=== PATIENT | male | born 1985 | race African-American/Black ===

== ENCOUNTER 2017-04-27 19:31 | Emergency (ER) | payer OTHER ==
[~2017-04-27] VITALS: Ht 175.3 cm; Wt 69.7 kg
[2017-04-27 20:58] LABS: HEMATOCRIT 42.1 % (38.0-50.0); MCH 29.9 PG (29.0-34.0); MCHC 33.5 G/DL (30.0-36.0); MCV 89.2 FL (86-99); MEAN PLAT.VOLUME 9.4 uM^3 (9.0-12.4); PLATELET COUNT 294 K/uL (156-360); RBC DIS.WIDTH-CV 11.7 % (11.8-14.6); RBC DIS.WIDTH-SD 38.2 % (39-53); RED BLOOD COUNT 4.72 M/uL (4.00-5.50); WHITE BLOOD COUNT 23.7 K/uL (4.1-10.2)
[2017-04-27 21:16] LABS: CHLORIDE 100 mEq/L (99-109); POTASSIUM 3.8 mEq/L (3.7-5.4); SODIUM 139 mEq/L (136-147)
[2017-04-27 21:18] LABS: GLUCOSE 105 mg/dL (70-99)
[2017-04-27 21:19] LABS: ANION GAP 11 MEQ/L (2-14)
[2017-04-27 21:21] LABS: SERUM ETHYL ALCOHOL < 10 mg/dL
[2017-04-27 21:22] LABS: GFR ESTIMATE (CALCULATED) > 59 mL/min/
[2017-04-27 21:23] LABS: UREA NITROGEN (BUN) 8 mg/dL (9-23)
[2017-04-27 21:25] LABS: SALICYLATE < 5.0 MG/DL (15-30)
[2017-04-27] MEDS ORDERED: NARCAN4 MG NS (22:09)
[2017-04-27 22:17] LABS: AMPHETAMINE NEGATIVE (500 ng/mL); BENZODIAZEPINES NEGATIVE (150 ng/mL); COCAINE PRESUMPTIVE POSITIVE (150 ng/mL); METHAMPHETAMINE NEGATIVE (500 ng/mL); OPIATES (MORPHINE) PRESUMPTIVE POSITIVE (100 ng/mL); PHENCYCLIDINE NEGATIVE (25 ng/mL); THC CANNABINOIDS PRESUMPTIVE POSITIVE (50 ng/mL); TRICYCLIC ANTIDEPRESSANTS NEGATIVE (300 ng/mL)
[2017-04-27 22:18] LABS: ADD MEDTOX COMMENT Y; BARBITURATES NEGATIVE (200 ng/mL); INTERNAL CONTROLS VALID? YES; METHADONE NEGATIVE (200 ng/mL); OXYCODONE NEGATIVE (100 ng/mL); PROPOXYPHENE NEGATIVE (300 ng/mL)
[2017-04-27 22:50] VITALS: BP 134/95
== END 2017-04-27 22:51 | disposition left against medical advice (07) ==
LOC: EME → EDBD 19:31 → EME 19:31
PROVIDERS: Emergency Medicine
DX: T40.1X1A Poisoning by heroin, accidental (unintentional), initial encounter (principal); Z53.20 Procedure and treatment not carried out because of patient's decision for unspecified reasons
CPT/HCPCS: 80048; 81003; 84999; 85027; 99281; 99284; G0480; J2310

== ENCOUNTER 2017-05-01 22:43 | Emergency (ER) | payer OTHER ==
[~2017-05-01] VITALS: Ht 175.3 cm; Wt 64.5 kg
[~2017-05-01 22:43] MED LIST: NARCAN4 MG NS
[2017-05-02 04:03] VITALS: BP 146/79
== END 2017-05-02 04:04 | disposition short-term general hospital (02) ==
LOC: EME → TRA 22:43 → EME 22:43 → EDBD 22:43 → EME 05-02 04:04
PROC: 3E0234Z Introduction of Serum, Toxoid and Vaccine into Muscle, Percutaneous Approach (ICD-10-PCS; principal; 2017-05-01)
DX: S02.32XA Fracture of orbital floor, left side, initial encounter for closed fracture (principal); S02.40FA Zygomatic fracture, left side, initial encounter for closed fracture; S02.411A LeFort I fracture, initial encounter for closed fracture; S00.81XA Abrasion of other part of head, initial encounter; Z23 Encounter for immunization; Y00.XXXA Assault by blunt object, initial encounter
CPT/HCPCS: 70450; 70486; 72125; 99281; 99285; J0295; J2405; J3010; J7050